=== PATIENT | male | born 1970 | race Caucasian/White ===

== ENCOUNTER 2018-06-13 13:39 | Emergency (ER) | payer MEDICAID ==
[~2018-06-13] VITALS: Ht 165.1 cm; Wt 63.6 kg
[2018-06-13 14:47] LABS: CLARITY,URINE CLEAR (Clear); COLOR,URINE YELLOW (Yellow); GLUCOSE, URINE NEGATIVE (Neg); KETONES,URINE NEGATIVE (Neg); LEUKOCYTE ESTERASE ,URINE NEGATIVE (Neg); NITRITES, URINE NEGATIVE (Neg); OCCULT BLOOD,URINE NEGATIVE (Neg); PH,URINE 5.5 (4.8-8.0); PROTEIN,URINE NEGATIVE (Neg); UROBILINOGEN,URINE 0.2 E.U/dL (0.2-1.0)
[2018-06-13 14:49] LABS: UA COLLECTION TYPE CLN CATCH MIDSTREAM
[2018-06-13 14:55] LABS: BASOPHILS # (AUTO) 0.2 X10'3 (0-0.2); BASOPHILS % (AUTO) 2.1 % (0-1); EOSINOPHILS # (AUTO) 0.3 X10'3 (0-0.9); EOSINOPHILS % (AUTO) 4.3 % (0-6); HEMATOCRIT 39.4 % (42.0-52.0); HEMOGLOBIN 13.2 g/dl (14.0-17.9); LYMPHOCYTES # (AUTO) 1.9 X10'3 (1.1-4.8); MEAN CORPUSCULAR HEMOGLOBIN 30.6 PG (27.0-31.0); MEAN CORPUSCULAR HGB CONC 33.4 g/dL (33.0-36.5); MEAN CORPUSCULAR VOLUME 91.6 FL (78-98); MEAN PLATELET VOLUME 7.7 FL (7.4-10.4); MONOCYTES # (AUTO) 0.7 X10'3 (0-0.9); MONOCYTES % (AUTO) 9.3 % (2-12); NEUTROPHILS # (AUTO) 4.4 X10'3 (1.8-7.7); NEUTROPHILS % (AUTO) 59.3 % (42-75); PLATELET COUNT 311 X10'3 (140-440); RED BLOOD COUNT 4.31 X10'6 (4.70-6.10); RED CELL DISTRIBUTION WIDTH 13.3 % (11.5-14.5); WHITE BLOOD COUNT 7.5 X10'3 (4.5-11.0)
[2018-06-13] MEDS ORDERED: TETanus/Pertussis (Acell)/Diphther VAC/PF (Tdap-Adult) 0.5ml syringe IM ONE (15:00)
[2018-06-13] MEDS ORDERED: LIDOcaine 1% 30ml preserv. free vial IJ ONE (15:00)
[2018-06-13] MEDS ORDERED: SULF1TAB49 PO (15:01)
[2018-06-13 15:49] VITALS: BP 113/69
[2018-06-13] MEDS ORDERED: ALBU8.5H8 IH (15:56)
--- NOTE | 2018-06-13 16:01 | NUR ---
Informed [facility] that Pt. requested rescue inhaler.
== END 2018-06-13 16:22 | disposition home or self-care (01) ==
LOC: ER 13:39
DX: L03.012 Cellulitis of left finger (principal); Z76.0 Encounter for issue of repeat prescription; Z59.0 Homelessness
CPT/HCPCS: 36415; 64450; 81003; 85025; 87070; 87077; 87186; 90471; 90715; 99284; J3490